=== PATIENT | male | born 1985 | race Caucasian/White ===

== ENCOUNTER 2017-07-24 19:54 | Emergency (ER) | payer OTHER ==
[~2017-07-24] VITALS: Ht 180.3 cm; Wt 83.9 kg
[2017-07-24] MEDS ORDERED: BUPR1FIL7 SL (20:05)
[2017-07-24] MEDS ORDERED: PARO-243 PO (20:06)
--- NOTE | 2017-07-24 20:08 | ER Report ---
History and Physical Time Seen By MD: 20:08 Hx. of Stated Complaint: PT. HERE FOR BENZO WITHDRAWL. PREVIOUS NARCATIC ABUSE, HOOKED ON XANAX WHILE SOBERING UP FROM NARCOTICS. HPI/ROS CHIEF COMPLAINT: Detox from benzos HISTORY OF PRESENT ILLNESS: 31-year-old male patient presents to emergency room with complaint of needing to detox from benzos. Patient states that he was trying to get into a rehabilitation facility in [place]. He states that he was denied due to the quantity of benzos a he was using a daily basis. He states that he was taking anywhere from 8-12 mg of Xanax or Klonopin a day. He states that he has a long-standing history of drug abuse. He states that he has a history of overdose, during which time he refused to the hospital. He was taking heroin, cocaine and benzos. He states that he has gone through rehabilitation multiple times and has been clean on multiple occasions with the longest period of sobriety being 2 years. Patient states that he was referred to this behavioral health unit for medical detox by the rehabilitation facility in [place]. Patient states that he has taken 1 mg of Klonopin this morning , he has not taken anything since then. He stating that he is feeling "shaky". REVIEW OF SYSTEMS: Respiratory: No cough, no dyspnea. Cardiovascular: No chest pain, no palpitations. Gastrointestinal: No vomiting, no abdominal pain. Musculoskeletal: No back pain. Allergies: Coded Allergies: No Known Drug Allergies (Unverified , 07/24/17) Home Meds Reported Medications Paroxetine Hcl (PAXIL) 20 Mg Tablet, 20 MG PO QDAY, TAB 07/24/17 Buprenorphine Hcl/Naloxone Hcl (SUBOXONE 8 MG-2 MG SL FILM) 1 Each Film, 2 EACH SL QDAY, FILM 07/24/17 Past Medical/Surgical History Patient has a past medical history of hepatitis C, kidney stones, narcotic abuse , benzo abuse, depression, anxiety, overdose. Patient has a surgical history of lithotripsy. Reviewed Nurses Notes: Yes Constitutional Vital Sign - Last 24 Hours 07/24/17 07/24/17 07/24/17 07/24/17 19:54 20:06 20:09 20:11 Temp 99.4 Pulse ??? 85 92 Resp 20 B/P (MAP) 149/88 149/88 (108) Pulse Ox 94 93 O2 Delivery Room Air 07/24/17 07/24/17 07/24/17 07/24/17 20:24 20:30 20:39 20:44 Pulse 95 85 80 B/P (MAP) 137/87 (104) Pulse Ox 94 92 93 07/24/17 07/24/17 21:00 21:14 Pulse 83 Resp 16 B/P (MAP) 128/70 (89) Pulse Ox 90 Physical Exam General Appearance: The patient is alert, has no immediate need for airway protection and no current signs of toxicity. ENT: Tympanic membranes are pearly-rivera, auditory canals are patent, mucous membranes are moist. Respiratory: Chest is non tender, lungs are clear to auscultation. Cardiac: regular rate and rhythm Gastrointestinal: Abdomen is soft and non tender, no masses, bowel sounds normal. Musculoskeletal: Neck: Neck is supple and non tender. Extremities have full range of motion and are non tender. Skin: No rashes or lesions. Psych: Patient is alert and oriented, rate of speech is appropriate, patient is able to maintain good eye contact. DIFFERENTIAL DIAGNOSIS: After history and physical exam differential diagnosis was considered for benzodiazepine withdrawal, opiate abuse, depression. Medical Decision Making Data Points Result Diagram: 07/24/17201807/24/172018 Laboratory Hematology Test 07/24/17 20:07 07/24/17 20:19 Urine Color Straw Urine Clarity Clear Urine pH 6.0 pH (4.8-9.5) Urine Specific [place] 1.003 Urine Protein Negative mg/dL (NEGATIVE) Urine Glucose (UA) Negative mg/dL (NEGATIVE) Urine Ketones Negative mg/dL (NEGATIVE) Urine Blood Negative (NEGATIVE) Urine Nitrite Negative (NEGATIVE) Urine Bilirubin Negative (NEGATIVE) Urine Urobilinogen Negative mg/dL (0.2-1.9) Urine Leukocyte Esterase Negative (NEGATIVE) Urine RBC <1 /HPF (0-2/HPF) Urine WBC 3 /HPF (0-5/HPF) Urine Squamous Epithelial Cells None /LPF (</=FEW) Urine Bacteria Few /HPF (NONE-FEW) Urine Mucus None /HPF (NONE-FEW) Urine Opiates Screen Positive Urine Barbiturates Screen Negative Ur Tricyclic Antidepressants Screen Negative Urine Phencyclidine Screen Negative Urine Amphetamines Screen Negative Urine Benzodiazepines Screen Negative Urine Cocaine Screen Negative Urine Cannabinoids Screen Negative Red Blood Count 5.07 M/uL (4.00-5.60) Mean Corpuscular Volume 85.3 fL (80.0-96.0) Mean Corpuscular Hemoglobin 29.7 pg (26.0-33.0) Mean Corpuscular Hemoglobin Concent 34.9 g/dL (32.0-36.0) Red Cell Distribution Width 12.8 % (11.5-14.5) Mean Platelet Volume 7.1 fL (7.2-11.1) Neutrophils (%) (Auto) 52.5 % (39.4-72.5) Lymphocytes (%) (Auto) 36.2 % (17.6-49.6) Monocytes (%) (Auto) 7.7 % (4.1-12.4) Eosinophils (%) (Auto) 2.5 % (0.4-6.7) Basophils (%) (Auto) 1.1 % (0.3-1.4) Nucleated RBC Relative Count (auto) 0.0 /100WBC Neutrophils # (Auto) 4.0 K/uL (2.0-7.4) Lymphocytes # (Auto) 2.7 K/uL (1.3-3.6) Monocytes # (Auto) 0.6 K/uL (0.3-1.0) Eosinophils # (Auto) 0.2 K/uL (0.0-0.5) Basophils # (Auto) 0.1 K/uL (0.0-0.1) Nucleated RBC Absolute Count (auto) 0.00 K/uL Sodium Level 138 mmol/L (137-145) Potassium Level 3.8 mmol/L (3.5-5.0) Chloride Level 101 mmol/L (98-107) Carbon Dioxide Level 28 mmol/L (22-30) Blood Urea Nitrogen 10 mg/dl (9-21) Creatinine 0.90 mg/dl (0.66-1.25) Glomerular Filtration Rate Calc > 60.0 Random Glucose 95 mg/dl (75-110) Calcium Level 9.7 mg/dl (8.4-10.2) Magnesium Level 1.5 mg/dl (1.7-2.2) Total Bilirubin 0.4 mg/dl (0.2-1.3) Aspartate Amino Transf (AST/SGOT) 58 U/L (0-35) Alanine Aminotransferase (ALT/SGPT) 101 U/L (0-56) Alkaline Phosphatase 77 U/L (0-126) Total Protein 7.2 gm/dl (6.3-8.2) Albumin 3.9 g/dl (3.5-5.0) Salicylates Level < 10 mg/L Salicylate Last Dose Date unk Acetaminophen Level < 10 ug/ml Serum Alcohol < 10 mg/dl Chemistry Test 07/24/17 20:07 07/24/17 20:19 Urine Color Straw Urine Clarity Clear Urine pH 6.0 pH (4.8-9.5) Urine Specific [place] 1.003 Urine Protein Negative mg/dL (NEGATIVE) Urine Glucose (UA) Negative mg/dL (NEGATIVE) Urine Ketones Negative mg/dL (NEGATIVE) Urine Blood Negative (NEGATIVE) Urine Nitrite Negative (NEGATIVE) Urine Bilirubin Negative (NEGATIVE) Urine Urobilinogen Negative mg/dL (0.2-1.9) Urine Leukocyte Esterase Negative (NEGATIVE) Urine RBC <1 /HPF (0-2/HPF) Urine WBC 3 /HPF (0-5/HPF) Urine Squamous Epithelial Cells None /LPF (</=FEW) Urine Bacteria Few /HPF (NONE-FEW) Urine Mucus None /HPF (NONE-FEW) Urine Opiates Screen Positive Urine Barbiturates Screen Negative Ur Tricyclic Antidepressants Screen Negative Urine Phencyclidine Screen Negative Urine Amphetamines Screen Negative Urine Benzodiazepines Screen Negative Urine Cocaine Screen Negative Urine Cannabinoids Screen Negative White Blood Count 7.6 k/uL (4.5-11.0) Red Blood Count 5.07 M/uL (4.00-5.60) Hemoglobin 15.1 g/dL (14.0-18.0) Hematocrit 43.2 % (42.0-52.0) Mean Corpuscular Volume 85.3 fL (80.0-96.0) Mean Corpuscular Hemoglobin 29.7 pg (26.0-33.0) Mean Corpuscular Hemoglobin Concent 34.9 g/dL (32.0-36.0) Red Cell Distribution Width 12.8 % (11.5-14.5) Platelet Count 275 K/uL (150-450) Mean Platelet Volume 7.1 fL (7.2-11.1) Neutrophils (%) (Auto) 52.5 % (39.4-72.5) Lymphocytes (%) (Auto) 36.2 % (17.6-49.6) Monocytes (%) (Auto) 7.7 % (4.1-12.4) Eosinophils (%) (Auto) 2.5 % (0.4-6.7) Basophils (%) (Auto) 1.1 % (0.3-1.4) Nucleated RBC Relative Count (auto) 0.0 /100WBC Neutrophils # (Auto) 4.0 K/uL (2.0-7.4) Lymphocytes # (Auto) 2.7 K/uL (1.3-3.6) Monocytes # (Auto) 0.6 K/uL (0.3-1.0) Eosinophils # (Auto) 0.2 K/uL (0.0-0.5) Basophils # (Auto) 0.1 K/uL (0.0-0.1) Nucleated RBC Absolute Count (auto) 0.00 K/uL Glomerular Filtration Rate Calc > 60.0 Calcium Level 9.7 mg/dl (8.4-10.2) Magnesium Level 1.5 mg/dl (1.7-2.2) Total Bilirubin 0.4 mg/dl (0.2-1.3) Aspartate Amino Transf (AST/SGOT) 58 U/L (0-35) Alanine Aminotransferase (ALT/SGPT) 101 U/L (0-56) Alkaline Phosphatase 77 U/L (0-126) Total Protein 7.2 gm/dl (6.3-8.2) Albumin 3.9 g/dl (3.5-5.0) Salicylates Level < 10 mg/L Salicylate Last Dose Date unk Acetaminophen Level < 10 ug/ml Serum Alcohol < 10 mg/dl Toxicology Test 07/24/17 20:07 07/24/17 20:19 Urine Opiates Screen Positive Urine Barbiturates Screen Negative Ur Tricyclic Antidepressants Screen Negative Urine Phencyclidine Screen Negative Urine Amphetamines Screen Negative Urine Benzodiazepines Screen Negative Urine Cocaine Screen Negative Urine Cannabinoids Screen Negative Salicylates Level < 10 mg/L Salicylate Last Dose Date unk Acetaminophen Level < 10 ug/ml Serum Alcohol < 10 mg/dl Urinalysis Test 07/24/17 20:07 Urine Color Straw Urine Clarity Clear Urine pH 6.0 pH (4.8-9.5) Urine Specific [place] 1.003 Urine Protein Negative mg/dL (NEGATIVE) Urine Glucose (UA) Negative mg/dL (NEGATIVE) Urine Ketones Negative mg/dL (NEGATIVE) Urine Blood Negative (NEGATIVE) Urine Nitrite Negative (NEGATIVE) Urine Bilirubin Negative (NEGATIVE) Urine Urobilinogen Negative mg/dL (0.2-1.9) Urine Leukocyte Esterase Negative (NEGATIVE) Urine RBC <1 /HPF (0-2/HPF) Urine WBC 3 /HPF (0-5/HPF) Urine Squamous Epithelial Cells None /LPF (</=FEW) Urine Bacteria Few /HPF (NONE-FEW) Urine Mucus None /HPF (NONE-FEW) ED Course/Re-evaluation ED Course Patient was admitted to exam room, history of physical were obtained. Differential diagnoses were considered. On examination lungs are clear, heart regular, abdomen soft nontender. Patient had no shaking, no signs of withdrawal this time. The lab work for a behavioral health admission were done. The labs were unremarkable except the patient did have an elevated AST and ALT. He does have a history of hepatitis C so it is likely secondary to that. Patient was positive for opiates, however he was negative for any other drugs. I discussed the case with Dr. Wilde, psychiatrist, who agreed to accept the patient for admission. I discussed this with the patient who verbalized understanding and agreement with plan. Decision to Disposition Date: Jul 24, 2017 Decision to Disposition Time: 21:06 Depart Departure Latest Vital Signs Vital Signs Date Time Temp Pulse Resp B/P (MAP) Pulse Ox O2 Delivery O2 Flow Rate FiO2 07/24/17 21:14 83 16 90 07/24/17 21:00 128/70 (89) 07/24/17 20:06 99.4 Room Air Impression: Primary Impression: Benzodiazepine withdrawal Condition: Condition Unchanged Disposition: XFER TO [facility] Problem Qualifiers Primary Impression: Benzodiazepine withdrawal Complication of substance-induced condition: uncomplicated Qualified Codes: F13.230 - Sedative, hypnotic or anxiolytic dependence with withdrawal, uncomplicated AGUSTIN HATCH Jul 24, 2017 20:08
[2017-07-24 20:36] LABS: PLATELET COUNT, AUTOMATED 275 K/uL (150-450)
[2017-07-24 21:00] VITALS: BP 128/70
== END 2017-07-24 21:27 ==
LOC: ER 20:30
DX: F13.230 Sedative, hypnotic or anxiolytic dependence with withdrawal, uncomplicated (principal); B19.20 Unspecified viral hepatitis C without hepatic coma
CPT/HCPCS: 80305; 80320; 80329; 81001; 82040; 82247; 82310; 82374; 82435; 82565; 82947; 83735; 84075; 84132; 84155; 84295; 84443; 84450; 84460; 84520; 85025; 99285

== ENCOUNTER 2017-07-24 21:10 | Inpatient (IN) | payer OTHER ==
[~2017-07-24] VITALS: Ht 180.3 cm; Wt 84.4 kg
[~2017-07-24 21:10] MED LIST: BUPR1FIL7 SL; PARO-243 PO
[2017-07-24] MEDS ORDERED: MAG HYD/AL HYD/SIMETH 30ML UDC PO PRN (21:50)
[2017-07-24] MEDS ORDERED: DIAZEPAM 10 MG TAB PO PRN (21:55)
[2017-07-24 22:16] VITALS: BP 130/100
[2017-07-24] MEDS: DIAZEPAM 10 MG TAB PO PRN (22:41)
--- NOTE | 2017-07-24 23:21 | Hospitalist Consultation ---
History of Present Illness Requesting Physician Dr. Wilde Reason for Consult Positive PPD skin test Chief Complaint Benzodiazepine withdrawal History of Present Illness 31yo male with long history of substance abuse and hepatitis C. He was admitted to the [facility] unit earlier today for treatment of benzodiazepine withdrawal. He had a PPD skin test placed five days ago while incarcerated in [place], [place]. At this time, he still has approximately 10mm induration at the site. He states he had a similar skin test reaction in 2015, but did not have any work up or treatment. He denies any fevers/chills, night sweats, weight loss, cough, dyspnea. He denies any known exposure to anyone with TB. He denies any travel outside [facility] or to any large metropolitan areas ([place] a few years ago) . He has been in drug rehab facilities in past. He does not recall having HIV testing done. He has not had any treatment for his hepatitis C. History Problems: (1) Substance abuse Status: Chronic (2) Hepatitis C Status: Chronic (3) History of cholecystectomy Status: Resolved Home Meds Reported Medications Paroxetine Hcl (PAXIL) 20 Mg Tablet, 20 MG PO QDAY, TAB 07/24/17 Buprenorphine Hcl/Naloxone Hcl (SUBOXONE 8 MG-2 MG SL FILM) 1 Each Film, 2 EACH SL QDAY, FILM 07/24/17 Allergies: Coded Allergies: No Known Drug Allergies (Unverified , 07/24/17) Hx Smoking: Yes Smoking Status: Current: Every Day Smoker, Heavy Tobacco Smoker Exposure to Second Hand Smoke?: No Caffeine Intake: Coffee Caffeine/Cups Per Day: 2-3 Hx Alcohol Use: No Alcohol Withdrawl Symptoms: Tremors, Heart Racing, Sweating, Agitation, Headache Hx Substance Use Disorder: Yes Social Drug Use: Currently Social Drugs: Prescription Drugs, Cocaine, Heroin History of IV Drug Use: Yes Review of Systems Constitutional: No Fever, No Chills, No Night Sweats Neurological: No Syncope Eyes: No Vision Change, No Loss of Vision ENT: No Hearing Loss Cardiovascular: No Chest Pain Respiratory: No Shortness of Breath, No Cough, No Wheezing Gastrointestinal: No Nausea, No Vomiting, No Diarrhea Genitourinary: No Dysuria, No Hematuria Exam Vital Signs Vital Signs Date Time Temp Pulse Resp B/P (MAP) Pulse Ox O2 Delivery O2 Flow Rate FiO2 07/24/17 22:16 98.5 89 130/100 (110) 97 Room Air General Appearance: Alert, Awake, Other (somewhat tremulous) Neuro: No Gross deficits Eyes: PERRLA ENT: Oropharynx Clear Neck: No Masses Cardiovascular: Regular Rate and Rhythm Respiratory: Clear to Auscultation Chest: No Tenderness GI: Abd Soft and Non-Tender : No CVA Tenderness Lymph: No Adenopathy Extremities: Warm, Perfused Integumentary: Other (positive PPD skin test volar aspect left forearm ( estimated 10mm)) Psych: Alert & Oriented X3 Medical Decision Making Data Points Item Value Date Time White Blood Count 7.6 k/uL 07/24/172018 Hemoglobin 15.1 g/dL 07/24/172018 Hematocrit 43.2 % 07/24/172018 Platelet Count 275 K/uL 07/24/172018 Sodium Level 138 mmol/L 07/24/172018 Potassium Level 3.8 mmol/L 07/24/172018 Chloride Level 101 mmol/L 07/24/172018 Carbon Dioxide Level 28 mmol/L 07/24/172018 Blood Urea Nitrogen 10 mg/dl 07/24/17 2019 Creatinine 0.90 mg/dl 07/24/172018 Glomerular Filtration Rate Calc > 60.0 07/24/172018 Random Glucose 95 mg/dl 07/24/172018 Calcium Level 9.7 mg/dl 07/24/172018 Magnesium Level 1.5 mg/dl L 07/24/172018 Total Bilirubin 0.4 mg/dl 07/24/172018 Aspartate Amino Transf (AST/SGOT) 58 U/L H 07/24/17 2019 Alanine Aminotransferase (ALT/SGPT) 101 U/L H 07/24/172018 Alkaline Phosphatase 77 U/L 07/24/172018 Total Protein 7.2 gm/dl 07/24/172018 Albumin 3.9 g/dl 07/24/172018 Salicylates Level < 10 mg/L 07/24/172018 Salicylate Last Dose Date unk 07/24/172018 Urine Opiates Screen Positive 07/24/172006 Acetaminophen Level < 10 ug/ml 07/24/172018 Urine Barbiturates Screen Negative 07/24/172006 Ur Tricyclic Antidepressants Screen Negative 07/24/172006 Urine Phencyclidine Screen Negative 07/24/172006 Urine Amphetamines Screen Negative 07/24/172006 Urine Benzodiazepines Screen Negative 07/24/172006 Urine Cocaine Screen Negative 07/24/172006 Urine Cannabinoids Screen Negative 07/24/172006 Serum Alcohol < 10 mg/dl 07/24/172018 Urine Color Straw 07/24/172006 Urine Clarity Clear 07/24/172006 Urine pH 6.0 pH 07/24/172006 Urine Specific [place] 1.003 07/24/172006 Urine Protein Negative mg/dL 07/24/172006 Urine Glucose (UA) Negative mg/dL 07/24/172006 Urine Ketones Negative mg/dL 07/24/172006 Urine Blood Negative 07/24/172006 Urine Nitrite Negative 07/24/172006 Urine Bilirubin Negative 07/24/172006 Urine Urobilinogen Negative mg/dL 07/24/172006 Urine Leukocyte Esterase Negative 07/24/172006 Urine RBC <1 /HPF 07/24/172006 Urine WBC 3 /HPF 07/24/172006 Urine Squamous Epithelial Cells None /LPF 07/24/172006 Urine Bacteria Few /HPF 07/24/172006 Urine Mucus None /HPF 07/24/172006 Assessment and Plan Problems: (1) Positive PPD Status: Chronic Assessment & Plan: He still has approximately 10mm at 5 days. It sounds like he may have been positive several years ago, but did not have evaluation or treatment. At present he is asymptomatic. Will check CXR. If abnormal, he will need continued isolation and check serial sputum for AFB. If normal, he could stay on [facility] unit, but would need to consider possibly taking prophylaxis as he would be someone who would probably be at higher risk for potential "reactivation". (2) Hepatitis C Status: Chronic Assessment & Plan: He does have modest elevation of his LFTs. He should see GI at some point to discuss possible treatment. He should have HIV testing as well. Venous Thromboembolism Antithrombotics Is Pt On Any Antithrombotics?: No FELICIA SMITH MD Jul 24, 2017 23:21
[2017-07-25 00:45] VITALS: BP 129/83
--- NOTE | 2017-07-25 00:51 | RADIOLOGY IMAGING REPORT ---
FACILITY: [facility] PATIENT NAME: Juan Li : 1985 MR: [id number] V: [id number] EXAM DATE: ORDERING PHYSICIAN: FELICIA SMITH TECHNOLOGIST: [place] [facility] [place] Patient: Juan Li : 1985 Visit/Account:[id number] Date of Sevice: 07/24/2017 CHEST PA AND LAT HISTORY: Positive PPD. COMPARISON: None. TECHNIQUE: PA and lateral views of the chest. FINDINGS: Pulmonary: Lungs are clear. There is no pneumothorax or pleural effusion. Cardiomediastinal: Cardiac and mediastinal silhouettes are within normal limits. Bones/soft tissues: No acute osseous abnormality. There is mild wedging of T12, uncertain age, and ma y be physiologic. The visible abdomen is normal. IMPRESSION: 1. No acute cardiopulmonary process. Report Dictated By: Trudy Carr at 07/25/2017 12:46 AM Report E-Signed By: Trudy Carr at 07/25/2017 12:47 AM WSN:[id number]
[2017-07-25 06:02] VITALS: BP 117/68
[2017-07-25] MEDS: THIAMINE HCL 100 MG TAB PO SCH (08:11)
[2017-07-25] MEDS: MULTIVITAMINS PO SCH (08:11)
[2017-07-25] MEDS: FOLIC ACID 1 MG TAB PO SCH (08:11)
[2017-07-25 08:20] VITALS: BP 145/83
[2017-07-25] MEDS: BUPRENORPHINE HCL/NALOXONE HCL 1 EACH TAB.SUBL SL SCH (08:21)
[2017-07-25] MEDS ORDERED: PATIENT'S OWN MED PO SCH (09:00)
[2017-07-25] MEDS ORDERED: NICOTINE CARTRIDGE 1 EA PO PRN (10:15)
[2017-07-25] MEDS: GABAPENTIN 300 MG CAP PO SCH ×3 (10:26→21:25)
[2017-07-25] MEDS: NICOTINE INH SYSTEM 10 MG/INH INH PRN ×2 (10:27→11:20)
[2017-07-25 11:57] VITALS: BP 138/103
[2017-07-25 12:00] VITALS: BP 138/103
[2017-07-25] MEDS: DIAZEPAM 10 MG TAB PO PRN ×6 (12:06→21:25)
[2017-07-25] MEDS ORDERED: LOPERAMIDE HCL 2 MG CAP PO PRN (12:15)
[2017-07-25] MEDS ORDERED: clonazePAM 0.5 MG ODT TABDP PO ONE (12:15)
[2017-07-25] MEDS ORDERED: LOPERAMIDE HCL 2 MG CAP PO ONE (12:15)
[2017-07-25] MEDS: NICOTINE 21 MG/24 HR PATCH TD SCH (15:04)
--- NOTE | 2017-07-25 17:09 | HISTORY AND PHYSICAL ---
DATE OF ADMISSION: July 24, 2017 PRESENTING PROBLEM/CHIEF COMPLAINT "I have to get off benzodiazepines." This 31-year-old male was interviewed on July 25, 2017 at approximately 10: 30 a.m. HISTORY OF PRESENT ILLNESS Patient very cooperative. Patient was brought here from the [place] area where patient had entered a social detox. Patient found to be in withdrawal and encouraged from staff to return to a hospital setting to get appropriate detoxification from longstanding and large amount of benzodiazepine abuse along with other substances. Patient reported to the emergency room here at [facility] on a voluntary basis. Patient cooperative with admission. Patient eventually cleared from the ER, evaluated for positive PPD with chest x-ray which was unremarkable. During initial admission patient stating he has used everything. He has most recently been battling benzodiazepines and opiates. Patient reporting taking up to 12 mg of Klonopin a day. He reports that specific stressors in his life outside of drug use are just "normal stuff." Patient does have a girlfriend who is also battling substance use, but is currently abstaining. Patient's goal is to complete acute detoxification from benzodiazepines, other substances, and then will return to enter rehab setting. Patient denying any other psychiatric concerns. MENTAL HEALTH HISTORY Patient has never been in a psychiatric [place] before for psychiatric or drug use issues. Patient currently not receiving any outpatient care. Patient does admit to having some brief thoughts of suicide in the past, and most recently around [place] time. No intentions and no suicide attempts. Patient reports his suicidal thoughts are most likely related to ongoing drug dependence. FAMILY PSYCHIATRIC HISTORY Patient reports an uncle is believed to have been using alcohol and drugs heavily. He had one nephew age 14 who was possibly being bullied at school and took his own life, and a cousin in his 30s who he did not know well who committed suicide. There is no other psychiatric history in the family that the patient is aware of. PAST MEDICAL HISTORY Patient has no allergies that he knows of. Patient suffers from hepatitis C likely due to needles from injecting according to the patient. Patient has a history of cholecystectomy and lithotripsy. Patient recently started on Paxil and has been remaining on Suboxone for opiate dependence. SOCIAL HISTORY Patient born in [place], raised there. Parents were at the time of his . They still are. Patient reports good relationships with them. He has three sisters and one brother, all older. Patient graduated high school. Never in the . 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 He has never , but has a two year relationship with a girlfriend. Patient has one child with his current girlfriend, who lives with him and his girlfriend in [place]. Patient has another child that is being raised by his mother. Patient does have visitation rights with this other child as well. LEGAL HISTORY Patient facing felony possession of Dilaudid charges. He has a history of two DUIs, one in [place] and one in [place], both related to nonalcohol substance use. SUBSTANCE ABUSE HISTORY Patient reports using in the past month, opiates, cocaine, benzodiazepine. Patient has tried methamphetamine, does not care for this. He has tried marijuana in the past, acid and many other substances. Patient reports he does not rojas and rarely drinks alcohol. MENTAL STATUS EXAMINATION GENERAL APPEARANCE, BEHAVIOR AND ATTITUDE: This is a polite, cooperative 31- year-old male, interacting well with this provider and other treatment team staff. Patient seems sincere in his intentions to abstain from drug use and enter recovery. Patient nontearful. We will continue to evaluate. Making good eye contact. No bizarre mannerisms or tics. SPEECH: Within normal limits, regular rate, rhythm volume and tone. MOOD: Described as frustrated with withdrawal from substances. AFFECT: Minimally constricted and mood congruent. THOUGHT PROCESSES: Appear logical, goal directed. No loose associations or flight of ideas. THOUGHT CONTENT: Free of auditory or visual hallucinations, ideas of reference , thought broadcastings, delusions, obsessions, compulsions. Patient adamantly denying any suicidal or homicidal ideation today. SENSORIUM: Clear. COGNITION: Alert and oriented to person, place, time and situation. MEMORY: Immediate, recent and remote estimated intact. INTELLIGENCE: Average based on interview. INSIGHT AND JUDGMENT: Considered grossly intact in the absence of drug and alcohol use. ASSESSMENT This is a polite, cooperative 31-year-old male who presents voluntarily for polysubstance use/dependence, and mainly treatment for acute detoxification from large dose benzodiazepine use. We will treat with CIWA protocol with diazepam, and will continue to evaluate. Discussion took place involving the use of isoniazid in relation to hepatitis C for apparently a positive PPD down the road. Patient noted to be seen by hospitalist regarding this already. We will continue to educate patient. DIAGNOSES PER DSM-V Hypnotic withdrawal, benzodiazepine. Hypnotic use disorder severe, benzodiazepine. Opiate use disorder severe. Stimulant use disorder, cocaine. Stressors of addiction. Positive PPD. Hepatitis C. PLAN 1. Admit to the unit. 2. Necessary precautions to be implemented. 3. Patient will participate in individual and group therapy. 4. Medications to be adjusted, titrated accordingly. 5. Collateral information to be obtained. 6. Estimated length of stay three to five days. MTDD
[2017-07-25] MEDS ORDERED: PAROXETINE HCL 10 MG TABLET PO SCH (21:00)
[2017-07-25] MEDS ORDERED: CALCIUM CARBONATE 500 MG CHEW PO ONE (21:30)
[2017-07-26 06:00] VITALS: BP 118/82
[2017-07-26] MEDS: MULTIVITAMINS PO SCH (08:15)
[2017-07-26] MEDS: NICOTINE 21 MG/24 HR PATCH TD SCH (08:15)
[2017-07-26] MEDS: BUPRENORPHINE HCL/NALOXONE HCL 1 EACH TAB.SUBL SL SCH (08:15)
[2017-07-26] MEDS: THIAMINE HCL 100 MG TAB PO SCH (08:15)
[2017-07-26] MEDS: FOLIC ACID 1 MG TAB PO SCH (08:15)
[2017-07-26] MEDS: GABAPENTIN 300 MG CAP PO SCH ×3 (08:15→21:00)
--- NOTE | 2017-07-26 10:51 | BHS Progress Note ---
[facility] - Subjective Progress Notes Subjective Patient doing well today, but demonstrating severe psychological dependance, Physiological withdrawal continues to be treated with diazepam, appetite, and sleep good, will return to treatment in [place] once withdrawal is considered complete. No other concerns today. Suicidal Ideation: None Homicidal Ideation: None [facility] - Objective Physical Exam Vital Signs Vital Signs Date Time Temp Pulse Resp B/P (MAP) Pulse Ox O2 Delivery O2 Flow Rate FiO2 07/26/17 06:00 98.8 87 118/82 (94) 92 Room Air 07/25/17 12:00 20 Muscle Strength and Tone: WNL Gait and Station: Steady [facility] Medications Reviewed: Side Effects, Benefits of Medication, Risks Allergies Reviewed: Yes Mental Status Exam General Appearance: Casual, Well Groomed, Good Eye Contact, Cooperative, Polite , Good Interaction, No Unkept, No Tearful, Psychomotor Agitation (minimal), No Psychomotor Retardation, No Bizarre Mannerisms, No Tics Speech: Clear, Spontaneous, Normal Rate, Normal Rhythm, Normal Volume, Normal Tone, No Rambling, No Inappropriate Mood: Dysthmic/Depressed (frustration) Affect: Full and Appropriate, No Flat, No Withdrawn, No Tearful, No Anxious, No Agitated Thought Process: Organized, Logical, Goal Directed, No Loose Associations, No Flight of Ideas Thought Content: No Suicidal Ideation, No Homicidal Ideation, No Delusions, No Auditory Halllucinations, No Visual Hallucinations, No Thought Broadcasting, No Ideas of Reference, No Obsessions, No Compulsions Sensorium: Clear Cognition: Alert & Oriented-Person, Alert & Oriented-Place, Alert & Oriented- Time, Wzyaq-Twyqjwqk-Kuutpqxhf Memory: Immediate, Recent, Remote Intelligence: Average Insight Judgment: Fair (impacted negatively by degree of addiction. 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 continue treatment of withdrawal 2. lab work in AM. Problem Qualifiers (1) Benzodiazepine withdrawal: Complication of substance-induced condition: uncomplicated Qualified Codes: F13.230 - Sedative, hypnotic or anxiolytic dependence with withdrawal, uncomplicated LOBO NEAL MD Jul 26, 2017 10:51
[2017-07-26] MEDS: DIAZEPAM 10 MG TAB PO PRN ×3 (11:31→22:08)
[2017-07-26] MEDS ORDERED: IBUPROFEN 600 MG TAB PO PRN (11:35)
[2017-07-26] MEDS ORDERED: NICOTINE 21 MG/24 HR PATCH TD ONE (12:35)
[2017-07-26 17:39] VITALS: BP 128/92
[2017-07-26] MEDS ORDERED: DIAZEPAM 10 MG TAB PO ONE (19:10)
[2017-07-26] MEDS ORDERED: CALCIUM CARBONATE 500 MG CHEW PO PRN (20:05)
[2017-07-26] MEDS: PARoxetine HCL 20 MG TAB PO SCH (21:00)
[2017-07-27 06:20] VITALS: BP 135/90
[2017-07-27 06:52] LABS: PLATELET COUNT, AUTOMATED 224 K/uL (150-450)
[2017-07-27] MEDS: MULTIVITAMINS PO SCH (08:18)
[2017-07-27] MEDS: FOLIC ACID 1 MG TAB PO SCH (08:19)
[2017-07-27] MEDS: THIAMINE HCL 100 MG TAB PO SCH (08:19)
[2017-07-27] MEDS: GABAPENTIN 300 MG CAP PO SCH ×3 (08:19→20:47)
[2017-07-27] MEDS: NICOTINE 21 MG/24 HR PATCH TD SCH (09:00)
[2017-07-27] MEDS: BUPRENORPHINE HCL/NALOXONE HCL 1 EACH TAB.SUBL SL SCH ×2 (09:00→10:50)
--- NOTE | 2017-07-27 10:04 | Miscellaneous Provider Note ---
Miscellaneous Provider Note Note I had discussion with Mr. Li regarding his positive PPD. He does understand this most likely signifies he was exposed to TB sometime in the past , but he does not appear to have any active/acute infection. As he has hepatitis C and some modest elevation of his AST/ALT, he would probably not be a good candidate for isoniazid. He possibly could take rifampin 600mg daily for four months as this has less hepatotoxicity. Plan at this time would be for Mr. Li to complete his treatment here and return home to [place], [place], where he could follow up with his primary care physician. At that time they could decide on which course to take. I discussed this with Dr. Wilde as well. FELICIA SMITH MD Jul 27, 2017 10:04
[2017-07-27 12:40] VITALS: BP 118/78
[2017-07-27] MEDS ORDERED: NEOMYCIN/POLYMYX/BACITR 30 GM TP PRN (14:40)
--- NOTE | 2017-07-27 16:21 | BHS Progress Note ---
[facility] - Subjective Progress Notes Subjective Pt seen with team. Pt still c/o subjective signs of withdrawal, sweaty palms, cravings. But last valium was at HS last night, has not scored high enough for any today. Pt showing typical addict behaviors, he cheeked his suboxone to "save some for later" and nursing staff confronted him. Nursing last night and today are excellent at helping pt identify his own thinking errors and cravings masked as somatic symptoms. With this support pt is beginning to "soften" his attitude a bit today, overheard speaking warmly to his ebp-gpyf-znm on the phone and singing her happy birthday,he is a little more humble and acknowledging need for help with his severe addiction. HIV test was negative. LFT's still mildly elevated. Pt c/o chronic back pain and neurontin increased to 600mg TID. Continue CIWA protocol. Suicidal Ideation: None Homicidal Ideation: None [facility] - Objective Physical Exam Muscle Strength and Tone: WNL Gait and Station: Steady [facility] Medications Reviewed: Side Effects, Benefits of Medication, Risks Allergies Reviewed: Yes Mental Status Exam General Appearance: Casual, Well Groomed, Good Eye Contact, Cooperative, Polite , Good Interaction, No Unkept, No Tearful, Psychomotor Agitation (minimal), No Psychomotor Retardation, No Bizarre Mannerisms, No Tics Speech: Clear, Spontaneous, Normal Rate, Normal Rhythm, Normal Volume, Normal Tone, No Rambling, No Inappropriate Mood: Dysthmic/Depressed (frustration) Affect: Full and Appropriate, No Flat, No Withdrawn, No Tearful, No Anxious, No Agitated Thought Process: Organized, Logical, Goal Directed, No Loose Associations, No Flight of Ideas Thought Content: No Suicidal Ideation, No Homicidal Ideation, No Delusions, No Auditory Halllucinations, No Visual Hallucinations, No Thought Broadcasting, No Ideas of Reference, No Obsessions, No Compulsions Sensorium: Clear Cognition: Alert & Oriented-Person, Alert & Oriented-Place, Alert & Oriented- Time, Snrfa-Fqvuvzmo-Doxvjziqf Memory: Immediate, Recent, Remote Intelligence: Average Insight Judgment: Fair (impacted negatively by degree of addiction. 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
[2017-07-27 16:45] VITALS: BP 102/68
[2017-07-27] MEDS ORDERED: hydrOXYzine 25 MG TAB PO PRN (20:40)
[2017-07-27] MEDS: PARoxetine HCL 20 MG TAB PO SCH (20:47)
[2017-07-27 20:58] VITALS: BP 120/84
[2017-07-27 21:16] VITALS: BP 120/84
[2017-07-28 06:46] VITALS: BP 116/70
[2017-07-28] MEDS ORDERED: hydrOXYzine PAMOATE 25 MG CAP PO PRN (07:50)
[2017-07-28] MEDS: GABAPENTIN 300 MG CAP PO SCH ×2 (08:50→13:27)
[2017-07-28] MEDS: FOLIC ACID 1 MG TAB PO SCH (08:50)
[2017-07-28] MEDS: THIAMINE HCL 100 MG TAB PO SCH (08:50)
[2017-07-28] MEDS: MULTIVITAMINS PO SCH (08:50)
[2017-07-28] MEDS: NICOTINE 21 MG/24 HR PATCH TD SCH (08:51)
[2017-07-28] MEDS: BUPRENORPHINE HCL/NALOXONE HCL 1 EACH TAB.SUBL SL SCH (08:52)
[2017-07-28 10:47] VITALS: BP 117/93
[2017-07-28] MEDS ORDERED: GABA-1 PO (11:36)
[2017-07-28] MEDS ORDERED: NICO-218 TD (11:39)
[2017-07-28] MEDS ORDERED: NEOM1PAC11 TP (11:40)
--- NOTE | 2017-07-28 12:52 | BHS Discharge Summary ---
[facility] Discharge Summary [id number] Encounter Date: Jul 28, 2017 Qkkq-oz-Nypa Encounter Time: 09:20 Reason-Hosp/Final Diag (DSM-V): (1) Benzodiazepine withdrawal Status: Acute Hospital Course & Plan: Pt was admitted voluntarily to [facility]. He was monitored with CIWA protocol and detox was completed with valium, with his last valium dose given over 24 hours prior to discharge. There were no complications. Pt was cooperative and motivated to get back to rehab program in [place]. His mood remained good throughout his stay, he denied SI at all times. He was started on neurontin for chronic back pain which he found helpful and was well tolerated. (2) Opiate dependence, continuous Status: Chronic Hospital Course & Plan: Pt stayed on his suboxone throughout his stay. (3) Stimulant use disorder Status: Chronic (4) Hepatitis C Status: Chronic (5) Positive PPD Status: Chronic Hospital Course & Plan: CXR was negative. Pt seen by medicine who recommended no treatment at this time, due to HEP C he was not considered good candidate for INH, but they felt later, after rehab, pt might have a course of rifampin. Pt understands he is to f/u with primary care. He also underastands that he should NOT have ppd placed again. 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 Mental Status Exam General Appearance: Casual, Well Groomed, Good Eye Contact, Cooperative, Polite , Good Interaction Speech: Clear, Spontaneous, Normal Rate, Normal Rhythm, Normal Volume, Normal Tone Mood: Euthymic Affect: Full and Appropriate Thought Process: Organized, Logical, Goal Directed Thought Content: No Suicidal Ideation, No Homicidal Ideation, No Delusions, No Auditory Halllucinations, No Visual Hallucinations, No Thought Broadcasting, No Ideas of Reference, No Obsessions, No Compulsions Sensorium: Clear Cognition: Alert & Oriented-Person, Alert & Oriented-Place, Alert & Oriented- Time, Utnpg-Olpnbeua-Kchbneqaa Memory: Immediate, Recent, Remote Intelligence: Average Insight Judgment: Good Departure Result Diagram: 07/27/1761907/27/17619 Condition: Improved Discharge to: Rehab Facility Discharge Instructions Home Meds Reported Medications Neomy Sulf/Bacitra/Polymyxin B (TRIPLE ANTIBIOTIC OINTMENT) 1 Each Packet, 1 EACH TP, TUBE thin line across wound area as needed 07/28/17 Nicotine (NICODERM CQ) 1 Each Patch.td24, 1 EACH TD 07/28/17 Gabapentin (NEURONTIN) 600 Mg Tablet, 600 MG PO TID, #30 07/28/17 Paroxetine Hcl (PAXIL) 20 Mg Tablet, 20 MG PO QDAY, #30 TAB 07/24/17 Buprenorphine Hcl/Naloxone Hcl (SUBOXONE 8 MG-2 MG SL FILM) 1 Each Film, 2 EACH SL QDAY, FILM 07/24/17 Diet: Regular Activity: As Tolerated Problem Qualifiers (1) Benzodiazepine withdrawal: Complication of substance-induced condition: uncomplicated Qualified Codes: F13.230 - Sedative, hypnotic or anxiolytic dependence with withdrawal, uncomplicated JOSE TEJEDA MD Jul 28, 2017 12:52
== END 2017-07-28 16:05 | disposition home or self-care (01) | DRG 897 ==
LOC: BHS 21:10
PROVIDERS: ADMIT Psychiatry & Neurology Psychiatry; ATTEND Psychiatry & Neurology Psychiatry
DX: F13.230 Sedative, hypnotic or anxiolytic dependence with withdrawal, uncomplicated (principal); F11.20 Opioid dependence, uncomplicated; F14.90 Cocaine use, unspecified, uncomplicated; B18.2 Chronic viral hepatitis C; R76.11 Nonspecific reaction to tuberculin skin test without active tuberculosis; F17.210 Nicotine dependence, cigarettes, uncomplicated; Z81.1 Family history of alcohol abuse and dependence; Z81.8 Family history of other mental and behavioral disorders; Z81.3 Family history of other psychoactive substance abuse and dependence; Z90.49 Acquired absence of other specified parts of digestive tract; Z73.3 Stress, not elsewhere classified; Z91.5 Personal history of self-harm
CPT/HCPCS: 36415; 71046; 82040; 82247; 82310; 82374; 82435; 82565; 82947; 83735; 84075; 84132; 84155; 84295; 84450; 84460; 84520; 85025; 86703